=== PATIENT | female | born 1965 | race Caucasian/White ===

== ENCOUNTER 2019-06-23 10:46 | Day surgery (SDC) | payer OTHER ==
[~2019-06-23] VITALS: Ht 177.8 cm; Wt 115.5 kg
[~2019-06-23 10:46] MED LIST: ACET325 PO; ACET500 PO; Advil Migraine200 MG PO; Amlodipine Bes2.5 MG; B-121000 MC2 PO; Bentyl20 MG PO; CITA20 PO; CRUTCH3 USE; CYCL10 PO; DIPH50 PO; Daily Multiple1 EACH PO; EPIPEN 2-P0.3 MG/0.3 IM; Glucosamine &1 EACH PO; HYDCOR2.5B TOP; IBUP800 PO; LORA.5 PO; LORA1 PO; LOSARTAN-HCTZ1 EAC2 PO; MELATONIN10 M2 PO; NAPR220 PO; ONDA8 PO; OXYACE5T PO; Percocet 5-3251 EACH PO; Zofran Odt4 MG SL
--- NOTE | 2019-06-23 12:59 | NUR ---
06/23/19 Eva9 Shaylee Parikh SIMETHICONE USED DURING PROCEDURE.
== END 2019-06-23 13:49 | disposition home or self-care (01) ==
LOC: ORSCSDS 10:46
PROVIDERS: Student in an Organized Health Care Education/Training Program
PROC: 0DBP8ZX Excision of Rectum, Via Natural or Artificial Opening Endoscopic, Diagnostic (ICD-10-PCS; principal; 2019-06-23 12:15)
DX: R15.0 Incomplete defecation (principal); K62.1 Rectal polyp; Z87.891 Personal history of nicotine dependence; F32.9 Major depressive disorder, single episode, unspecified; Z79.899 Other long term (current) drug therapy
CPT/HCPCS: 82947; 88305; J2704; J7120

== ENCOUNTER → 2020-11-05 | Outpatient (CLI) | payer OTHER ==
[2020-11-10 13:12] LABS: ADENOVIRUS F 40/41 Not Detected (Not Detected); ASTROVIRUS Not Detected (Not Detected); C DIFFICILE TOXIN A/B Not Detected (Not Detected); CRYPTOSPORIDIUM Not Detected (Not Detected); CYCLOSPORA CAYETANENSIS Not Detected (Not Detected); ENTAMOEBA HISTOLYTICA Not Detected (Not Detected); ENTEROAGGREGATIVE E COLI Not Detected (Not Detected); ENTEROPATHOGENIC E COLI Not Detected (Not Detected); ENTEROTOXIGENIC E COLI Not Detected (Not Detected); GIARDIA LAMBLIA Not Detected (Not Detected); NOROVIRUS GI/GII Not Detected (Not Detected); PLESIOMONAS SHIGELLOIDES Not Detected (Not Detected); ROTAVIRUS A Not Detected (Not Detected); SALMONELLA Not Detected (Not Detected); SAPOVIRUS Not Detected (Not Detected); SHIGA-TOXIN-PRODUCING E COLI Not Detected (Not Detected); SHIGELLA/ENTEROINVASIVE E COLI Not Detected (Not Detected); VIBRIO Not Detected (Not Detected); VIBRIO CHOLERAE Not Detected (Not Detected); YERSINIA ENTEROCOLITICA Not Detected (Not Detected)
== END | disposition home or self-care (01) ==
LOC: LAB 08:40
PROVIDERS: Nurse Practitioner Family
DX: R10.9 Unspecified abdominal pain (principal)
CPT/HCPCS: 0097U; 87177; 87209